=== PATIENT | female | born 1965 | race Caucasian/White ===

== ENCOUNTER 2017-04-06 06:37 | Outpatient (CLI) | payer OTHER | END 2017-04-06 06:48 | disposition home or self-care (01) | LOC: LAB 06:37 | DX: B39.2 Pulmonary histoplasmosis capsulati, unspecified (principal); A15.0 Tuberculosis of lung ==

== ENCOUNTER 2021-01-25 10:16 | Outpatient (CLI) | payer OTHER | END 2021-01-25 10:26 | disposition home or self-care (01) | LOC: LAB 10:16 | PROVIDERS: ATTEND Orthopaedic Surgery | DX: M16.11 Unilateral primary osteoarthritis, right hip (principal) ==

== ENCOUNTER 2021-01-29 08:30 | Inpatient (IN) | payer OTHER ==
[~2021-01-29] VITALS: Ht 157.5 cm; Wt 56.7 kg
[2021-01-29] MEDS ORDERED: D3 + K2 DOTS 11 EACH PO (09:12)
[2021-01-29] MEDS ORDERED: JANUMET 50-1,01 EACH PO (09:12)
[2021-01-29] MEDS ORDERED: TRAM1TAB98 PO (09:13)
[2021-02-13] MEDS ORDERED: PERCOCET 5-3251 EACH PO (16:15)
[2021-02-13] MEDS ORDERED: ELIQUIS2.5 MG PO (16:15)
[2021-02-13] MEDS ORDERED: DUI500 PO (16:15)
== END 2021-02-13 18:16 | DRG 470 ==
LOC: SURG 02-11 06:30 → O/R 02-11 06:30 → SURH 02-11 07:00 → SURG 02-11 14:26
PROVIDERS: ADMIT Orthopaedic Surgery; ATTEND Orthopaedic Surgery
PROC: 0SR90JZ Replacement of Right Hip Joint with Synthetic Substitute, Open Approach (ICD-10-PCS; principal; 2021-02-11 07:00)
DX: M16.11 Unilateral primary osteoarthritis, right hip (principal)